=== PATIENT | male | born 1970 | race Caucasian/White ===

== ENCOUNTER 2017-01-14 00:19 | Emergency (ER) | payer OTHER ==
[2017-01-14] MEDS ORDERED: IBUPROFEN 600 MG STARTER PACK 4 TAB BTL PO STA (00:39)
[2017-01-14] MEDS ORDERED: ACET/COD 300 MG/30 MG STARTER PACK 6 TAB BTL PO STA (00:39)
--- NOTE | 2017-01-14 01:02 | XR ---
EXAM: XR Chest, 2 Views CLINICAL HISTORY: Reason: Pain TECHNIQUE: Frontal and lateral views of the chest. COMPARISON: No relevant prior studies available. FINDINGS: Lungs: Unremarkable. No consolidation. Pleural space: Unremarkable. No pneumothorax. Heart: Unremarkable. No cardiomegaly. Mediastinum: Unremarkable. Bones/joints: Unremarkable. IMPRESSION: Unremarkable chest x-rays.
[2017-01-14] MEDS ORDERED: AMOXIC-POT CLAV 875MG STARTER 2 EACH TABLET PO STA (01:05)
--- NOTE | 2017-01-14 01:08 | ED ---
ENT HPI - General Chief complaint: ENT Stated complaint: Ear Pain Time Seen by Provider: 01/14/17 00:30 Source: patient, RN notes reviewed, old records reviewed Mode of arrival: ambulatory Limitations: no limitations - History of Present Illness Initial comments: This is a 46-year-old male presents emergency for chief complaint of right ear pain for the past few days. Patient reports he cannot sleep because it was throbbing. He states that he has had sinusitis and now has had a productive cough. Patient reports that he took a motrin and claritin earlier today. Patient reports they did notice he is having some fevers and chills. He states that he is a smoker. Denies any history of sick contacts. Patient reports when he put ear drops in and trying to clean it out. - Related Data Previous Rx's Medication Instructions Recorded Amoxic-Pot Clav 875-125Mg 1 tab PO Q12HR #20 tablet 01/14/17 [Augmentin 875-125] Allergies Allergy/AdvReac Type Severity Reaction Status Date / Time No Known Allergies Allergy Verified 01/14/17 00:27 Review of Systems ROS Statement: Those systems with pertinent positive or pertinent negative responses have been documented in the HPI. ROS Other: All systems not noted in ROS Statement are negative. Past Medical History Past Medical History: No Reported History History of Any Multi-Drug Resistant Organisms: None Reported Past Surgical History: Tonsillectomy Past Psychological History: No Psychological Hx Reported Smoking Status: Current every day smoker Past Alcohol Use History: Occasional Past Drug Use History: Marijuana General Exam - General Exam Comments Initial Comments: This is a 46 year old male, no distress. Limitations: no limitations General appearance: alert, in no apparent distress Head exam: Present: atraumatic, normocephalic, normal inspection Eye exam: Present: normal appearance, PERRL, EOMI. Absent: scleral icterus, conjunctival injection, periorbital swelling ENT exam: Present: normal exam, mucous membranes moist. Absent: TM's normal bilaterally (bilateral TM are ceruminous. Cerumen of right tm remobed and is erythematous and bulging. ) Neck exam: Present: normal inspection. Absent: tenderness, meningismus, lymphadenopathy Respiratory exam: Present: normal lung sounds bilaterally. Absent: respiratory distress, wheezes, rales, rhonchi, stridor Cardiovascular Exam: Present: regular rate, normal rhythm, normal heart sounds. Absent: systolic murmur, diastolic murmur, rubs, gallop, clicks GI/Abdominal exam: Present: soft, normal bowel sounds. Absent: distended, tenderness, guarding, rebound, rigid Extremities exam: Present: normal inspection, full ROM, normal capillary refill. Absent: tenderness, pedal edema, joint swelling, calf tenderness Back exam: Present: normal inspection Neurological exam: Present: alert, oriented X3, CN II-XII intact Psychiatric exam: Present: normal affect, normal mood Skin exam: Present: warm, dry, intact, normal color. Absent: rash Course Vital Signs 01/14/17 01/14/17 00:23 01:39 Temperature 100.7 F H 98.7 F Pulse Rate 92 91 Respiratory 20 18 Rate Blood Pressure 171/98 141/84 O2 Sat by Pulse 97 95 Oximetry Medical Decision Making - Medical Decision Making This is a 46-year-old male presents emergency for chief complaint of right ear pain for the past few days. Patient reports he cannot sleep because it was throbbing. He states that he has had sinusitis and now has had a productive cough. Patient arrives with fever, given motrin and tylenol 3 starter pack for pain. Both TM were covered with cerumen, was able remove majority of cerumen with ear curette. Right TM is erythematous and bulging. Patient received CXR due to coughing, CXR is negative for any acute process. Patient is a smoker. Patient will be started on augmentin, and advised to follow up with PCP. Discussed returning if any alarming signs or symptoms occur. Discussed patient also needs to follow up due to elevated blood pressure. - Radiology Data Radiology results: report reviewed CXR negative for any acute process. Disposition Clinical Impression: Otitis media, Hypertension Disposition: HOME SELF-CARE Condition: Good Instructions: Earache (ED) Additional Instructions: Patient is to take decongestant medications such as Sudafed. Patient should take the antibiotics as prescribed. Close follow-up with her primary care physician, in regards to blood pressure check. Return to the emergency department if any alarming signs or symptoms occur. Prescriptions: Amoxic-Pot Clav 875-125Mg [Augmentin 875-125] 1 tab PO Q12HR #20 tablet Referrals: None,Stated [Primary Care Provider] - 1-2 days Cordelia Juan MD [STAFF PHYSICIAN] - 1-2 days Time of Disposition: 01:05
[2017-01-14 01:41] VITALS: BP 141/84; PULSE 91; RESP 18; TEMP 98.7
== END 2017-01-14 01:41 | disposition home or self-care (01) ==
LOC: EC 00:19
DX: H66.91 Otitis media, unspecified, right ear (principal); I10 Essential (primary) hypertension; J32.9 Chronic sinusitis, unspecified; F17.200 Nicotine dependence, unspecified, uncomplicated
CPT/HCPCS: 71020; 99284